=== PATIENT | female | born 1950 | race Caucasian/White ===

== ENCOUNTER 2017-05-27 12:08 | Inpatient (IN) | payer MEDICARE, BC ==
[2017-05-25 14:56] LABS: BASOPHILS % (AUTO) 0.1 % (0-1); EOSINOPHILS # (AUTO) 0.4 X10'3 (0-0.9); EOSINOPHILS % (AUTO) 5.3 % (0-6); LYMPHOCYTES # (AUTO) 2.4 X10'3 (1.1-4.8); LYMPHOCYTES % (AUTO) 32.9 % (21-51); MEAN CORPUSCULAR HEMOGLOBIN 31.2 PG (27.0-31.0); MEAN CORPUSCULAR HGB CONC 33.9 % (33.0-36.5); MEAN CORPUSCULAR VOLUME 92.1 FL (78-98); MEAN PLATELET VOLUME 8.4 FL (7.4-10.4); MONOCYTES # (AUTO) 0.7 X10'3 (0-0.9); MONOCYTES % (AUTO) 9.6 % (2-12); NEUTROPHILS # (AUTO) 3.7 X10'3 (1.8-7.7); NEUTROPHILS % (AUTO) 52.1 % (42-75); PRE OP HEMATOCRIT 32.2 % (35.0-45.0); PRE OP PLATELET COUNT 278 X10'3 (140-440); RED BLOOD COUNT 3.49 X10'6 (4.20-5.60); RED CELL DISTRIBUTION WIDTH 12.6 % (11.5-14.5)
[2017-05-25 15:00] LABS: PRE OP HEMOGLOBIN 10.9 g/dL (12.0-16.0)
[2017-05-25 15:08] LABS: PRE OP INR 0.9 INR; PRE OP PROTIME 9.8 SECONDS (9.0-12.0)
[2017-05-25 15:14] LABS: ALBUMIN 3.5 G/DL (3.4-5.0); ALKALINE PHOSPHATASE 125 IU/L (46-116); BLOOD UREA NITROGEN 21 MG/DL (7-18); BUN/CREATININE RATIO 20.6 (6.6-38.0); CALCIUM 11.3 MG/DL (8.5-10.1); CHLORIDE 104 MMOL/L (99-107); CREATININE 1.02 MG/DL (0.40-0.90); PRE OP ALT 18 U/L (30-65); PRE OP ANION GAP 8 (8-16); PRE OP AST 20 U/L (10-37); PRE OP BILIRUB, TOTAL 0.3 MG/DL (0.0-1.0); PRE OP GLUCOSE 120 MG/DL (70-104); PRE OP POTASSIUM 3.8 MMOL/L (3.4-5.1); PRE OP SODIUM 143 MMOL/L (135-145); TOTAL CARBON DIOXIDE 30.6 MMOL/L (24-32); TOTAL PROTEIN 7.1 G/DL (6.4-8.2); eGFR 54 ML/MIN
[2017-05-27] VITALS (18 sets, daily range): BP systolic 96–150; BP diastolic 48–90
[~2017-05-27] VITALS: Ht 167.6 cm; Wt 119.0 kg
[~2017-05-27 12:08] MED LIST: ASCO500C15 PO; CALC600T12 PO; CHOL10002 PO; DULO-31 PO; FURO-150 PO; HYDR-565 PO; LISI1TAB13 PO; OMEP20TA5 PO; cefazolin/dext.iso 2gm/50ml 50 ML IV ONE; famotidine 20mg tablet PO ONE; ringers solution, lacted 1,000 ML IV SCH; vancomycin inj 1,500 MG in normal saline 300ml IV soln IV ONE
[2017-05-27] MEDS ORDERED: LIDOcaine 1% (10mg/ml) 2ml vial ONE (12:27)
[2017-05-27] MEDS ORDERED: morphine 2 MG/ML inj. syringe IV PRN ×2 (13:15)
[2017-05-27] MEDS ORDERED: proCHLORperazine 10 MG/2 ml inj IV PRN (13:15)
[2017-05-27] MEDS ORDERED: ondansetron/PF 4mg/2ml inj IV PRN ×3 (13:15→18:30)
[2017-05-27] MEDS ORDERED: meperidine/PF 50mg/ml syringe IV PRN ×3 (13:15)
[2017-05-27] MEDS ORDERED: ringers solution, lacted 1,000 ML IV SCH (13:15)
[2017-05-27] MEDS ORDERED: ceFAZolin 1000mg inj ONE (14:08)
[2017-05-27] MEDS ORDERED: tetracaine 1% (10mg/ml) pres. free inj. ONE (14:24)
[2017-05-27] MEDS ORDERED: MIDAZolam 5mg/ml 2ml vial ONE (14:29)
[2017-05-27] MEDS ORDERED: MORPHINE SULFATE/PF 0.5 MG/ML 10ML AMPUL ONE (14:29)
[2017-05-27] MEDS ORDERED: fentaNYL/PF 50MCG/1 ML 2ML syringe ONE (14:29)
[2017-05-27] MEDS ORDERED: propofol inj 20 ML IV ONE ×2 (15:05)
[2017-05-27] MEDS ORDERED: phenylephrine 10mg/ml inj IV ONE (17:54)
[2017-05-27] MEDS ORDERED: naloxone 2mg/2ml inj 2 MG in normal saline 500ml IV soln 500 ML IV PRN (18:22)
[2017-05-27] MEDS ORDERED: diphenhydrAMINE 50 mg/ml inj IV PRN (18:25)
[2017-05-27] MEDS ORDERED: diphenhydrAMINE 25mg capsule PO PRN ×2 (18:30)
[2017-05-27] MEDS: potassium cl 20mEq in 1/2 NS 1,000 ML IV SCH (18:30)
[2017-05-27] MEDS ORDERED: HYDROmorphone inj. 0.5 MG/0.5 ML DISP.SYRIN IV PRN (18:30)
[2017-05-27] MEDS ORDERED: HYDROcodone/acetaminophen 10/325mg tab PO PRN ×2 (18:30)
[2017-05-27] MEDS ORDERED: magnesium hydroxide 30ml (MOM) UD suspension PO PRN (18:30)
[2017-05-27] MEDS ORDERED: bisacodyl 10mg suppository rectal RC PRN (18:30)
[2017-05-27] MEDS ORDERED: acetaminophen 325mg tablet PO PRN (18:30)
[2017-05-27] MEDS ORDERED: vancomycin/NS 1 GM ADD-VANTAGE 250 ML IV SCH (20:00)
[2017-05-27] MEDS: sennosides 8.6mg tablet PO SCH (20:07)
[2017-05-27] MEDS ORDERED: morphine 4 MG/ML inj SYRINge IV PRN (23:15)
[2017-05-28] MEDS: cefazolin 1gm/NS 100mL 100 ML IV SCH ×2 (00:14→09:09)
[2017-05-28] MEDS: oxyCODONE/APAP 10/325mg tablet PO PRN ×6 (01:07→21:02)
[2017-05-28 02:21] VITALS: BP 119/52
[2017-05-28] MEDS: potassium cl 20mEq in 1/2 NS 1,000 ML IV SCH ×2 (04:30→09:06)
[2017-05-28 05:00] VITALS: BP 119/60
[2017-05-28 06:27] LABS: BASOPHILS % (AUTO) 0.2 % (0-1); EOSINOPHILS # (AUTO) 0.3 X10'3 (0-0.9); EOSINOPHILS % (AUTO) 3.1 % (0-6); HEMATOCRIT 28.5 % (35.0-45.0); HEMOGLOBIN 9.7 g/dl (12.0-16.0); LYMPHOCYTES # (AUTO) 1.3 X10'3 (1.1-4.8); LYMPHOCYTES % (AUTO) 13.5 % (21-51); MEAN CORPUSCULAR HEMOGLOBIN 31.2 PG (27.0-31.0); MEAN CORPUSCULAR HGB CONC 34.2 % (33.0-36.5); MEAN CORPUSCULAR VOLUME 91.2 FL (78-98); MEAN PLATELET VOLUME 8.1 FL (7.4-10.4); MONOCYTES # (AUTO) 0.9 X10'3 (0-0.9); NEUTROPHILS # (AUTO) 6.9 X10'3 (1.8-7.7); NEUTROPHILS % (AUTO) 73.2 % (42-75); PLATELET COUNT 254 X10'3 (140-440); RED BLOOD COUNT 3.12 X10'6 (4.20-5.60); RED CELL DISTRIBUTION WIDTH 12.7 % (11.5-14.5); WHITE BLOOD COUNT 9.5 X10'3 (4.5-11.0)
[2017-05-28 06:52] LABS: ANION GAP 6 (8-16); CHLORIDE 102 MMOL/L (99-107); POTASSIUM 4.5 MMOL/L (3.5-5.1); SODIUM 138 MMOL/L (135-145)
[2017-05-28] MEDS: morphine 4 MG/ML inj SYRINge IV PRN ×4 (07:25→19:22)
[2017-05-28] MEDS: aspirin 81mg tablet.DR PO SCH ×2 (07:30→17:10)
[2017-05-28] MEDS: lisinopril 20mg tablet PO SCH (09:06)
[2017-05-28] MEDS: duloxetine 30mg CAPSULE.DR PO SCH (09:06)
[2017-05-28] MEDS: HYDROchlorothiazide 25mg tablet PO SCH (09:08)
[2017-05-28] MEDS: pantoprazole 40mg Tablet.DR PO SCH (09:08)
[2017-05-28] MEDS: furosemide 20MG tablet PO SCH (09:08)
[2017-05-28 10:00] VITALS: BP 128/52
[2017-05-28 14:00] VITALS: BP 131/48
[2017-05-28 18:00] VITALS: BP 117/55
[2017-05-28] MEDS: sennosides 8.6mg tablet PO SCH (21:02)
[2017-05-28 22:00] VITALS: BP 108/40
[2017-05-29] MEDS: potassium cl 20mEq in 1/2 NS 1,000 ML IV SCH ×2 (00:30→10:30)
[2017-05-29 05:00] VITALS: BP 121/64
[2017-05-29] MEDS: oxyCODONE/APAP 10/325mg tablet PO PRN ×3 (05:22→14:12)
[2017-05-29 06:04] LABS: BASOPHILS % (AUTO) 0 % (0-1); EOSINOPHILS # (AUTO) 0.3 X10'3 (0-0.9); EOSINOPHILS % (AUTO) 2.7 % (0-6); HEMATOCRIT 25.5 % (35.0-45.0); HEMOGLOBIN 8.7 g/dl (12.0-16.0); LYMPHOCYTES # (AUTO) 1.4 X10'3 (1.1-4.8); LYMPHOCYTES % (AUTO) 14.7 % (21-51); MEAN CORPUSCULAR HEMOGLOBIN 31.4 PG (27.0-31.0); MEAN CORPUSCULAR HGB CONC 33.9 % (33.0-36.5); MEAN CORPUSCULAR VOLUME 92.5 FL (78-98); MEAN PLATELET VOLUME 8.3 FL (7.4-10.4); MONOCYTES # (AUTO) 1.1 X10'3 (0-0.9); NEUTROPHILS # (AUTO) 6.5 X10'3 (1.8-7.7); NEUTROPHILS % (AUTO) 70.6 % (42-75); PLATELET COUNT 222 X10'3 (140-440); RED BLOOD COUNT 2.76 X10'6 (4.20-5.60); RED CELL DISTRIBUTION WIDTH 12.6 % (11.5-14.5); WHITE BLOOD COUNT 9.2 X10'3 (4.5-11.0)
[2017-05-29] MEDS: HYDROchlorothiazide 25mg tablet PO SCH (08:00)
[2017-05-29] MEDS: furosemide 20MG tablet PO SCH (08:00)
[2017-05-29] MEDS: lisinopril 20mg tablet PO SCH (08:00)
[2017-05-29] MEDS: pantoprazole 40mg Tablet.DR PO SCH (08:47)
[2017-05-29] MEDS: aspirin 81mg tablet.DR PO SCH ×2 (08:47→17:44)
[2017-05-29] MEDS: duloxetine 30mg CAPSULE.DR PO SCH (08:48)
[2017-05-29 10:00] VITALS: BP 113/61
[2017-05-29 18:00] VITALS: BP 97/47
[2017-05-29] MEDS: sennosides 8.6mg tablet PO SCH (21:13)
[2017-05-29 22:00] VITALS: BP 101/47
[2017-05-30 06:00] VITALS: BP 112/59
[2017-05-30 07:35] LABS: BASOPHILS % (AUTO) 0.1 % (0-1); EOSINOPHILS # (AUTO) 0.3 X10'3 (0-0.9); EOSINOPHILS % (AUTO) 2.9 % (0-6); HEMATOCRIT 23.3 % (35.0-45.0); LYMPHOCYTES # (AUTO) 1.5 X10'3 (1.1-4.8); LYMPHOCYTES % (AUTO) 17.3 % (21-51); MEAN CORPUSCULAR HEMOGLOBIN 31.3 PG (27.0-31.0); MEAN CORPUSCULAR HGB CONC 34.4 % (33.0-36.5); MEAN CORPUSCULAR VOLUME 90.8 FL (78-98); MEAN PLATELET VOLUME 8.5 FL (7.4-10.4); MONOCYTES % (AUTO) 10.7 % (2-12); NEUTROPHILS # (AUTO) 6.1 X10'3 (1.8-7.7); PLATELET COUNT 209 X10'3 (140-440); RED BLOOD COUNT 2.57 X10'6 (4.20-5.60); RED CELL DISTRIBUTION WIDTH 12.5 % (11.5-14.5); WHITE BLOOD COUNT 8.9 X10'3 (4.5-11.0)
[2017-05-30] MEDS: pantoprazole 40mg Tablet.DR PO SCH (07:59)
[2017-05-30] MEDS: aspirin 81mg tablet.DR PO SCH (07:59)
[2017-05-30] MEDS: duloxetine 30mg CAPSULE.DR PO SCH (07:59)
[2017-05-30] MEDS: furosemide 20MG tablet PO SCH (08:00)
[2017-05-30] MEDS: HYDROchlorothiazide 25mg tablet PO SCH (08:00)
[2017-05-30] MEDS: lisinopril 20mg tablet PO SCH (08:00)
[2017-05-30] MEDS: oxyCODONE/APAP 10/325mg tablet PO PRN ×2 (09:41→13:52)
[2017-05-30 10:46] VITALS: BP 112/59
== END 2017-05-30 14:40 | disposition home health service (06) | DRG 493 ==
LOC: PAS IN 12:08 → EDSTATUS 14:15 → ORTHO 4S 19:32
PROVIDERS: ADMIT Orthopaedic Surgery; ATTEND Orthopaedic Surgery
PROC: 0QSH04Z Reposition Left Tibia with Internal Fixation Device, Open Approach (ICD-10-PCS; principal; 2017-05-27 14:31)
DX: M97.12XA Periprosthetic fracture around internal prosthetic left knee joint, initial encounter (principal); D62 Acute posthemorrhagic anemia; Z68.41 Body mass index [BMI] 40.0-44.9, adult; G62.9 Polyneuropathy, unspecified; F32.9 Major depressive disorder, single episode, unspecified; I10 Essential (primary) hypertension; E66.9 Obesity, unspecified; K21.9 Gastro-esophageal reflux disease without esophagitis; M81.0 Age-related osteoporosis without current pathological fracture; Z96.651 Presence of right artificial knee joint; Z99.3 Dependence on wheelchair; Z90.49 Acquired absence of other specified parts of digestive tract; Z90.710 Acquired absence of both cervix and uterus; Z79.899 Other long term (current) drug therapy
CPT/HCPCS: 36415; 73590; 76001; 80051; 80053; 85025; 85610; 85730; 86885; 86900; 86901; 86920; 87070; 93005; 97110; 97116; 97161; 97530; A6223; A6255; A6257; A6258; A6449; A7000; C1758; J0690; J1170; J2250; J2270; J2274; J2370; J2704; J3010; J3370; J3490; J7030; J7120

== ENCOUNTER 2017-07-09 11:10 | Outpatient (CLI) | payer MEDICARE, BC ==
[~2017-07-09 11:10] MED LIST changes: -ASCO500C15 PO; -CALC600T12 PO; -CHOL10002 PO; -HYDR-565 PO; -cefazolin/dext.iso 2gm/50ml 50 ML IV ONE; -famotidine 20mg tablet PO ONE; -ringers solution, lacted 1,000 ML IV SCH; -vancomycin inj 1,500 MG in normal saline 300ml IV soln IV ONE
== END 2017-07-09 23:59 | disposition home or self-care (01) ==
LOC: LAB SPEC 11:10
PROVIDERS: ATTEND Orthopaedic Surgery
DX: S91.002D Unspecified open wound, left ankle, subsequent encounter (principal); T84.9XXD Unspecified complication of internal orthopedic prosthetic device, implant and graft, subsequent encounter; I10 Essential (primary) hypertension; X58.XXXD Exposure to other specified factors, subsequent encounter
CPT/HCPCS: 87070; 87075; 87077

== ENCOUNTER 2018-02-11 06:54 | Day surgery (SDC) | payer MEDICARE, BC ==
[2018-02-03 10:29] LABS: BASOPHILS % (AUTO) 0.5 % (0-1); EOSINOPHILS # (AUTO) 0.2 X10'3 (0-0.9); EOSINOPHILS % (AUTO) 3.5 % (0-6); LYMPHOCYTES # (AUTO) 1.7 X10'3 (1.1-4.8); LYMPHOCYTES % (AUTO) 29.2 % (21-51); MEAN CORPUSCULAR HEMOGLOBIN 30.8 PG (27.0-31.0); MEAN CORPUSCULAR HGB CONC 33.5 % (33.0-36.5); MEAN CORPUSCULAR VOLUME 91.7 FL (78-98); MEAN PLATELET VOLUME 8.7 FL (7.4-10.4); MONOCYTES # (AUTO) 0.5 X10'3 (0-0.9); MONOCYTES % (AUTO) 9.4 % (2-12); NEUTROPHILS # (AUTO) 3.3 X10'3 (1.8-7.7); NEUTROPHILS % (AUTO) 57.4 % (42-75); PRE OP HEMATOCRIT 33.4 % (35.0-45.0); PRE OP HEMOGLOBIN 11.2 g/dL (12.0-16.0); PRE OP PLATELET COUNT 270 X10'3 (140-440); RED BLOOD COUNT 3.64 X10'6 (4.20-5.60); RED CELL DISTRIBUTION WIDTH 13.1 % (11.5-14.5)
[2018-02-03 10:39] LABS: ALBUMIN 3.6 G/DL (3.4-5.0); ANION GAP 8 (8-16); BLOOD UREA NITROGEN 43 MG/DL (7-18); BUN/CREATININE RATIO 46.7 (6.6-38.0); CHLORIDE 101 MMOL/L (99-107); CREATININE 0.92 MG/DL (0.40-0.90); GLUCOSE 128 MG/DL (70-104); POTASSIUM 3.9 MMOL/L (3.5-5.1); SODIUM 139 MMOL/L (135-145); TOTAL CARBON DIOXIDE 29.7 MMOL/L (24-32); eGFR 61 ML/MIN
[2018-02-03 10:42] LABS: CALCIUM 13.4 MG/DL (8.5-10.1)
[2018-02-11] VITALS (7 sets, daily range): BP systolic 117–137; BP diastolic 64–99
[~2018-02-11] VITALS: Ht 166.4 cm; Wt 110.6 kg
[~2018-02-11 06:54] MED LIST changes: +HYDR-4353 PO; +cefazolin/dext.iso 2gm/100 ML IV ONE; +famotidine 20mg tablet PO ONE; +ringers solution, lacted 1,000 ML IV SCH
[2018-02-11] MEDS ORDERED: TERI2.4P SUBCUT (07:35)
[2018-02-11] MEDS ORDERED: LIDOcaine 0.5% (5mg/ml) 50ml vial ONE (08:20)
[2018-02-11] MEDS ORDERED: BUPIVAcaine/PF 2.5mg/ml (0.25%) 10ml vial ONE (09:15)
[2018-02-11] MEDS ORDERED: fentaNYL/PF 50MCG/1 ML 2ML syringe ONE (09:16)
[2018-02-11] MEDS ORDERED: midazolam 2 mg/2 ml injection ONE (09:17)
[2018-02-11] MEDS ORDERED: ringers solution, lacted 1,000 ML IV SCH (09:49)
[2018-02-11] MEDS ORDERED: ondansetron/PF 4mg/2ml inj IV PRN (09:50)
[2018-02-11] MEDS ORDERED: meperidine/PF 25mg/ml syringe IV PRN ×3 (09:50)
[2018-02-11] MEDS ORDERED: morphine 4 MG/ML inj SYRINge IV PRN ×2 (09:50)
[2018-02-11] MEDS ORDERED: proCHLORperazine 10 MG/2 ml inj IV PRN (09:50)
[2018-02-11] MEDS ORDERED: propofol inj 20 ML IV ONE (10:04)
== END 2018-02-11 10:56 | disposition home or self-care (01) ==
LOC: PAS 06:54
PROVIDERS: ATTEND Orthopaedic Surgery Hand Surgery
DX: G56.02 Carpal tunnel syndrome, left upper limb (principal); G56.22 Lesion of ulnar nerve, left upper limb; M81.0 Age-related osteoporosis without current pathological fracture; M19.042 Primary osteoarthritis, left hand; K21.9 Gastro-esophageal reflux disease without esophagitis; I10 Essential (primary) hypertension; E66.9 Obesity, unspecified; F32.9 Major depressive disorder, single episode, unspecified; Z86.11 Personal history of tuberculosis; Z68.41 Body mass index [BMI] 40.0-44.9, adult; Z86.711 Personal history of pulmonary embolism; Z87.11 Personal history of peptic ulcer disease; Z87.442 Personal history of urinary calculi; Z96.653 Presence of artificial knee joint, bilateral; Z87.891 Personal history of nicotine dependence; Z90.49 Acquired absence of other specified parts of digestive tract; Z90.710 Acquired absence of both cervix and uterus; Z79.891 Long term (current) use of opiate analgesic; Z79.899 Other long term (current) drug therapy; Z98.890 Other specified postprocedural states
CPT/HCPCS: 29848; 36415; 64718; 80048; 85025; 93005; A6449; J0690; J2001; J2250; J2704; J3010; J3490; A7000; J7120

== ENCOUNTER → 2018-03-07 | Outpatient (CLI) | payer MEDICARE, BC ==
[~2018-03-07] MED LIST changes: +TERI2.4P SUBCUT; -cefazolin/dext.iso 2gm/100 ML IV ONE; -famotidine 20mg tablet PO ONE; -ringers solution, lacted 1,000 ML IV SCH
== END | disposition home or self-care (01) ==
LOC: DIABETIC 23:59
PROVIDERS: ATTEND Surgery
DX: Z71.3 Dietary counseling and surveillance (principal); E66.01 Morbid (severe) obesity due to excess calories; Z68.41 Body mass index [BMI] 40.0-44.9, adult; I10 Essential (primary) hypertension
CPT/HCPCS: G0108

== ENCOUNTER 2018-04-07 00:39 | Outpatient (CLI) | payer MEDICARE, BC | END 2018-04-07 23:59 | disposition home or self-care (01) | LOC: DIABETIC 00:39 | PROVIDERS: ATTEND Surgery | DX: Z71.3 Dietary counseling and surveillance (principal); E66.01 Morbid (severe) obesity due to excess calories; K21.9 Gastro-esophageal reflux disease without esophagitis; I10 Essential (primary) hypertension; Z79.899 Other long term (current) drug therapy | CPT/HCPCS: 97802 ==

== ENCOUNTER 2018-05-03 03:15 | Outpatient (CLI) | payer MEDICARE, BC | END 2018-05-03 23:59 | disposition home or self-care (01) | LOC: DIABETIC 03:15 | PROVIDERS: ATTEND Surgery | DX: E66.01 Morbid (severe) obesity due to excess calories (principal); Z71.3 Dietary counseling and surveillance; Z68.41 Body mass index [BMI] 40.0-44.9, adult; K21.9 Gastro-esophageal reflux disease without esophagitis; I10 Essential (primary) hypertension | CPT/HCPCS: 97802 ==

== ENCOUNTER 2018-05-31 04:48 | Outpatient (CLI) | payer MEDICARE, BC | END 2018-05-31 23:59 | disposition home or self-care (01) | LOC: DIABETIC 04:48 | PROVIDERS: ATTEND Surgery | DX: E66.01 Morbid (severe) obesity due to excess calories (principal); K21.9 Gastro-esophageal reflux disease without esophagitis; Z79.899 Other long term (current) drug therapy; Z71.3 Dietary counseling and surveillance | CPT/HCPCS: 97802 ==